=== PATIENT | female | born 1935 | race Asian ===

== ENCOUNTER 2018-10-15 12:41 | Outpatient (CLI) | payer OTHER ==
[2018-10-15 13:24] LABS: PLATELET COUNT 229 K/uL (152-353); POTASSIUM 4.9 mmol/L (3.6-5.2)
== END 2018-10-15 19:50 | disposition home or self-care (01) ==
LOC: LAB 12:41
PROVIDERS: Family Medicine
DX: E78.00 Pure hypercholesterolemia, unspecified (principal); M62.89 Other specified disorders of muscle
CPT/HCPCS: 80053; 80061; 83735; 84439; 84443; 84481; 85027

== ENCOUNTER 2018-11-03 09:11 | Outpatient (CLI) | payer OTHER | END 2018-11-03 20:20 | disposition home or self-care (01) | LOC: MAMMO 09:11 | DX: Z12.31 Encounter for screening mammogram for malignant neoplasm of breast (principal) ==

== ENCOUNTER 2018-11-17 13:53 | Outpatient (CLI) | payer OTHER | END 2018-11-17 19:40 | disposition home or self-care (01) | LOC: MAMMO 13:53 | DX: R92.8 Other abnormal and inconclusive findings on diagnostic imaging of breast (principal) ==

== ENCOUNTER 2018-12-22 07:18 | Day surgery (SDC) | payer OTHER ==
[~2018-12-22] VITALS: Ht 30.5 cm; Wt 0.5 kg
[2018-12-22 09:02] LABS: POTASSIUM 3.7 mmol/L (3.6-5.2)
[2018-12-22 09:14] LABS: PLATELET COUNT 229 K/uL (152-353)
== END 2018-12-22 12:20 | disposition home or self-care (01) ==
LOC: OR 07:18
PROVIDERS: Internal Medicine
PROC: 0DJD8ZZ Inspection of Lower Intestinal Tract, Via Natural or Artificial Opening Endoscopic (ICD-10-PCS; principal; 2018-12-22)
DX: K57.30 Diverticulosis of large intestine without perforation or abscess without bleeding (principal); K64.8 Other hemorrhoids; Z12.11 Encounter for screening for malignant neoplasm of colon
CPT/HCPCS: G0121; 80053; 85027; J2001; J2250; J2405; J2704; J2765